=== PATIENT | female | born 1960 | race American Indian/Alaskan Native ===

== ENCOUNTER 2017-02-27 20:27 | Emergency (ER) | payer SELFPAY ==
[2017-02-27 21:02] VITALS: BP 142/76
== END 2017-02-27 21:55 | disposition left against medical advice (07) ==
LOC: ED 20:27
DX: R03.0 Elevated blood-pressure reading, without diagnosis of hypertension (principal); Z53.21 Procedure and treatment not carried out due to patient leaving prior to being seen by health care provider